=== PATIENT | male | born 1995 | race Caucasian/White ===

== ENCOUNTER 2016-10-19 03:00 | Emergency (ER) | payer OTHER | END 2016-10-19 03:58 | disposition home or self-care (01) | LOC: ER1 03:00 | DX: Z53.21 Procedure and treatment not carried out due to patient leaving prior to being seen by health care provider (principal) ==

== ENCOUNTER → 2021-03-16 | Emergency (ER) | payer SELFPAY ==
[~2021-03-16] MED LIST: NAPROSYN500 MG PO
[2021-03-16 16:26] LABS: RED BLOOD COUNT 5.74 M/UL (4.20-5.50); WHITE BLOOD COUNT 12.8 K/UL (4.5-11.0)
[2021-03-16 16:50] LABS: BUN/CREATININE RATIO 13 (0-10)
== END | disposition home or self-care (01) ==
LOC: ER1 15:00
PROVIDERS: Emergency Medicine
DX: F41.9 Anxiety disorder, unspecified (principal); I10 Essential (primary) hypertension; F17.200 Nicotine dependence, unspecified, uncomplicated
CPT/HCPCS: 71045; 80053; 80307; 81001; 82550; 82553; 83605; 83735; 83874; 84439; 84443; 84484; 85025; 85379; 87040; 93005; 96374; 99285; J2060; J7030; Q9967